=== PATIENT | female | born 1980 | race Caucasian/White ===

== ENCOUNTER 2020-07-05 07:07 | Emergency (ER) | payer MEDICAID ==
[~2020-07-05] VITALS: Ht 167.6 cm; Wt 82.0 kg
[2020-07-05 07:10] VITALS: BP 135/82
[2020-07-05] MEDS ORDERED: TETANUS, DIPHTHERIA, PERTUSSIS VAC/PF 0.5ML (>7YR OLD) IM ONE (07:45)
[2020-07-05] MEDS ORDERED: ONDANSETRON 4MG ODT PO ONE (07:45)
[2020-07-05] MEDS ORDERED: ACETAMINOPHEN 500MG TABLET PO ONE (07:45)
== END 2020-07-05 10:40 | disposition home or self-care (01) ==
LOC: ER 07:37
DX: S01.81XA Laceration without foreign body of other part of head, initial encounter (principal); F19.10 Other psychoactive substance abuse, uncomplicated; X58.XXXA Exposure to other specified factors, initial encounter; Y93.89 Activity, other specified; Y92.89 Other specified places as the place of occurrence of the external cause; Y99.8 Other external cause status
CPT/HCPCS: 12016; 70450; 90471; 90715; 99284; Q0162

== ENCOUNTER 2020-07-13 11:51 | Emergency (ER) | payer MEDICAID ==
[~2020-07-13] VITALS: Ht 165.1 cm; Wt 100.0 kg
[2020-07-13 12:02] VITALS: BP 129/85
== END 2020-07-13 13:45 | disposition home or self-care (01) ==
LOC: ER 11:51
DX: Z48.02 Encounter for removal of sutures (principal)
CPT/HCPCS: 99282